=== PATIENT | male | born 1985 | race Caucasian/White ===

== ENCOUNTER 2023-03-25 10:22 | Outpatient (CLI) | payer OTHER ==
--- NOTE | 2023-03-25 15:47 | MRI Report ---
PROCEDURE: SHOULDER WO - RT INDICATIONS: RIGHT SHOULDER PAIN TECHNIQUE: Noncontrast oblique coronal T2 fast spin echo with fat saturation, oblique sagittal T1 spin echo and T2 fast spin echo with fat saturation, axial T1 spin echo and T2 fast spin echo with fat saturation t hrough the shoulder. COMPARISON: None. FINDINGS: Image quality: Excellent. Rotator cuff: Low-grade articular and bursal surface partial-thickness tear involving distal supraspi natus at its insertion on humeral head is seen extending to musculotendinous junction. Distal infrasp inatus and subscapularis tendinosis is seen. No full-thickness rotator cuff tendon rupture. No rotato r cuff muscle atrophy on sagittal images. Bones and bursae: No bone marrow contusions or fractures. Mild acromioclavicular joint osteoarthriti c changes are seen with joint space narrowing and downward osteophyte formation canal supraspinatus. The acromion demonstrates conventional anatomy, without an os acromiale. Small amount of subacromial subdeltoid bursal fluid is noted. Capsule and soft tissues: Fraying of superior anterior labrum with T2 hyperintense signal at 12 to 1: 00 position is seen concerning for superior anterior labral tear. The long head of the biceps tendon demonstrates normal location and morphology. The rotator interval appears normal, without fibrosis. The coracohumeral ligament is normal in thickness. IMPRESSION: 1. Low-grade articular and bursal surface partial-thickness tear involving distal supraspinatus exten ding to musculotendinous junction. Distal infraspinatus and subscapularis tendinosis. No full-thickne ss rotator cuff tendon rupture. 2. Mild acromioclavicular joint osteoarthritis. No fracture or dislocation. Small amount of subacromi al subdeltoid bursal fluid, no gross loose bodies. 3. Suggestion of subtle superior anterior labral tear at 12 to 1:00 position. Reviewed by: Erasto Christina MD on 03/25/2023 3:46 PM PST Approved by: Erasto Christina MD on 03/25/2023 3:46 PM PST Station ID: [id number]
== END 2023-03-25 10:23 | disposition home or self-care (01) ==
LOC: DI 10:22
PROVIDERS: ATTEND Nurse Practitioner Family
DX: M75.111 Incomplete rotator cuff tear or rupture of right shoulder, not specified as traumatic (principal); M19.011 Primary osteoarthritis, right shoulder

== ENCOUNTER 2023-06-04 10:31 | Outpatient (CLI) | payer OTHER ==
--- NOTE | 2023-06-04 19:42 | MRI Report ---
PROCEDURE: Shoulder LT WO INDICATIONS: LEFT SHOULDER PAIN TECHNIQUE: Noncontrast oblique coronal T2 fast spin echo with fat saturation, oblique sagittal T1 spin echo and T2 fast spin echo with fat saturation, axial T1 spin echo and T2 fast spin echo with fat saturation t hrough the shoulder. COMPARISON: None. FINDINGS: Image quality: Mild motion artifact Rotator cuff Bulk: No significant atrophy Teres minor: Intact Supraspinatus: Mild tendinopathy. No significant tear Infraspinatus: Mild tendinopathy. Subscapularis: Intact Bones and bursae GH joint: Minimal osteophytes and joint space narrowing. AC joint: Mild to moderate degenerative changes and capsular edema Humeral head: A focal of T2 signal normality at the lesser tuberosity, likely degenerative ganglions Scapula and acromion: Intact Bursa: No pathologic fluid Capsule Labrum: Not well evaluated on this nonarthrographic study. Mild signal abnormality at superior labrum is seen, extending to the location of the biceps anchor Long head biceps tendon: There is intra-articular tendinopathy, with signal abnormality near the aj oid insertion. IGHL: Intact Rotator interval: Fat signal is preserved Soft tissues: No axillary adenopathy. Lungs are not well seen. IMPRESSION: Possible signal abnormality of the superior labrum may represent a small superior labral tear versus adjacent anatomic recess. This also involves the biceps insertion near the glenoid, which may represe nt tendinopathy and a small split tear. Consider MR arthrogram to further evaluate if necessary. Mild rotator cuff tendinopathy. No full-thickness defect. Minimal glenohumeral and mild to moderate acromioclavicular degenerative changes. Reviewed by: Bienvenido Delacruz MD on 06/04/2023 7:41 PM PST Approved by: Bienvenido Delacruz MD on 06/04/2023 7:41 PM PST Station ID: [id number]
== END 2023-06-04 10:32 | disposition home or self-care (01) ==
LOC: DI 10:31
PROVIDERS: ATTEND Nurse Practitioner Family
DX: M67.814 Other specified disorders of tendon, left shoulder (principal); M19.012 Primary osteoarthritis, left shoulder

== ENCOUNTER 2023-08-12 08:53 | Outpatient (CLI) | payer OTHER ==
[~2023-08-12 08:53] MED LIST: BUPIVACAINE 0.5% PF 10 ML VIAL ONE; LIDOCAINE-MPF 1% 5 ML VIAL ONE; TRIAMCINOLONE 40 MG/ML VIAL ONE
[2023-08-12] MEDS: LIDOCAINE-MPF 1% 5 ML VIAL TD ONE (10:28)
[2023-08-12] MEDS: BUPIVACAINE 0.5% PF 10 ML VIAL IM ONE (10:29)
[2023-08-12] MEDS: TRIAMCINOLONE 40 MG/ML VIAL IM ONE (10:30)
--- NOTE | 2023-08-12 11:38 | Ultrasound Report ---
PROCEDURE: Injection Single Tendon INDICATIONS: L SHOULDER PAIN TECHNIQUE: The indications, alternatives, benefits, risks, and complications of the procedure were explained to the patient. Written informed consent was obtained and placed in the chart. The patient was placed in an appropriate position on the ultrasound table, and a site was chosen for percutaneous access und er ultrasound guidance. Local anesthetic was administered using a 1% lidocaine solution. A hypoderm ic or spinal needle was then used to access the symptomatic site. Appropriate location of the needle tip was confirmed by real time ultrasound imaging, followed by steroid administration. The needle wa s then withdrawn, and a bandage applied to the puncture site. FINDINGS: Site injected: Left biceps long head tendon sheath Medications injected: 1.5 mL of 40 mg/mL Kenalog and 0.5% Ropivacaine mixture. Complications: None. IMPRESSION: Successful ultrasound guided administration of steroid and anaesthetic solution into the left biceps long tendon sheath. Reviewed by: Zhen Storm MD on 08/12/2023 11:36 AM PDT Approved by: Zhen Storm MD on 08/12/2023 11:36 AM PDT Station ID: [id number]
== END 2023-08-12 08:54 | disposition home or self-care (01) ==
LOC: DI 08:53
PROVIDERS: ATTEND Orthopaedic Surgery
DX: M25.512 Pain in left shoulder (principal)
CPT/HCPCS: 20550

== ENCOUNTER 2023-08-16 08:13 | Emergency (ER) | payer OTHER ==
[2023-08-16] MEDS: ONDANSETRON 4 MG/2 ML VIAL IVP STA (08:41)
[2023-08-16 08:44] LABS: BASOPHILS # (AUTO) 0.1 10^3/uL (0.0-0.1); BASOPHILS % (AUTO) 0.7 %; EOSINOPHILS # (AUTO) 0.2 10^3/uL (0.0-0.7); EOSINOPHILS % (AUTO) 1.5 %; HCT - HEMATOCRIT 43.4 % (42.0-52.0); LYMPHOCYTES # (AUTO) 2.3 10^3/uL (1.5-3.5); LYMPHOCYTES % (AUTO) 22.4 %; MEAN CORPUSCULAR HEMOGLOBIN 28.6 pg (27.0-31.0); MEAN CORPUSCULAR HGB CONC 32.3 g/dL (32.0-36.0); MEAN CORPUSCULAR VOLUME 88.8 fL (80.0-94.0); MEAN PLATELET VOLUME 9.3 fL (7.4-11.4); MONOCYTES # (AUTO) 0.7 10^3/uL (0.0-1.0); MONOCYTES % (AUTO) 6.9 %; NEUTROPHILS # (AUTO) 6.9 10^3/uL (1.5-6.6); NEUTROPHILS % (AUTO) 68.2 %; PLT - PLATELET COUNT 291 10^3/uL (130-450); RED BLOOD COUNT 4.89 10^6/uL (4.70-6.10); RED CELL DISTRIBUTION WIDTH 12.5 % (12.0-15.0); WHITE BLOOD COUNT 10.1 x10^3/uL (4.8-10.8)
[2023-08-16] MEDS: HYDROmorphone 1 MG/ML CARPUJECT IVP STA ×2 (08:45→11:11)
[2023-08-16] MEDS: KETOROLAC 30 MG/ML VIAL IVP STA (08:49)
--- NOTE | 2023-08-16 08:59 | ED Physician Documentation ---
PD HPI ABD PAIN - Stated complaint Stated Complaint: LOWER BACK/ABD PX - Chief complaint Chief Complaint: Abd Pain - History obtained from History obtained from: Patient - Additional information Additional information: Patient is a 37-year-old male presenting for evaluation of low back pain that started suddenly this morning. Patient was recently seen on August 04 and diagnosed with a left ureter stone measuring 4 mm. He reports having outpatient follow-up with the [facility] and they did an x-ray which was not able to visualize the stone. He was given a referral to [facility] urology and called on Saturday but did not receive a call back. He is out of pain medication. He reports the pain is severe. It feels worse than his prior episode. Has associated nausea. No fevers. Denies dysuria or hematuria. Review of Systems Constitutional: denies: Fever Cardiac: denies: Chest pain / pressure Respiratory: denies: Dyspnea GI: reports: Abdominal Pain, Nausea. denies: Diarrhea : denies: Dysuria Musculoskeletal: reports: Back pain PD PAST MEDICAL HISTORY - Past Medical History Past Medical History: Yes : Kidney stones Psych: ADD/ADHD - Past Surgical History Past Surgical History: Yes - Present Medications Home Medications: Ambulatory Orders Medication Instructions Recorded Confirmed Dextroamphetamine/Amphetamine 15 mg PO DAILY 08/05/23 08/16/23 [Dextroamp-Amphetamine 5 mg Tab] Dextroamphetamine/Amphetamine 25 mg PO DAILY 08/05/23 08/16/23 [Dextroamp-Amphetamine 5 mg Tab] Ibuprofen 600 mg PO Q6HR PRN #30 tablet 08/05/23 08/16/23 Ondansetron Odt [Zofran] 4 mg TL Q6H PRN #10 tablet 08/16/23 Oxycodone HCl/Acetaminophen 1 each PO Q6H PRN #20 tablet 08/16/23 [Percocet 5-325 mg Tablet] Tamsulosin [Flomax] 0.4 mg PO DAILY #14 cap 08/16/23 - Allergies Allergies/Adverse Reactions: Allergies Allergy/AdvReac Type Severity Reaction Status Date / Time Penicillins Allergy Unknown Verified 08/16/23 08:21 - Social History Does the pt smoke?: No Smoking Status: Never smoker Does the pt drink ETOH?: No Does the pt have substance abuse?: No - Immunizations Immunizations are current?: Yes PD ED PE NORMAL - General General: Alert and oriented X 3, Well developed/nourished, Other (Mildly distressed, in tears) - HEENT HEENT: Atraumatic, Moist mucous membranes, Pharynx benign - Neck Neck: Supple, no meningeal sign - Cardiac Cardiac: RRR, Strong equal pulses - Respiratory Respiratory: No respiratory distress, Clear bilaterally - Abdomen Abdomen: Normal bowel sounds, Soft, Non tender, Non distended - Derm Derm: Warm and dry - Neuro Neuro: Normal speech Results - Vitals Vitals: Vital Signs - 24 hr 08/16/23 08/16/23 08/16/23 08:18 10:21 12:00 Temperature 36.2 C L Heart Rate 88 80 87 Respiratory 18 15 16 Rate Blood Pressure 130/69 145/91 H 152/93 H O2 Saturation 97 99 98 08/16/23 13:46 Temperature 36.5 C Heart Rate 86 Respiratory 16 Rate Blood Pressure 140/88 H O2 Saturation 100 Oxygen O2 Source Room air - Labs Labs: Laboratory Tests 08/16/23 08/16/23 08/16/23 08:38 08:56 09:47 WBC 10.1 RBC 4.89 Hgb 14.0 Hct 43.4 MCV 88.8 MCH 28.6 MCHC 32.3 RDW 12.5 Plt Count 291 MPV 9.3 Neut # (Auto) 6.9 H Lymph # (Auto) 2.3 [place] # (Auto) 0.7 Eos # (Auto) 0.2 Baso # (Auto) 0.1 Absolute Nucleated RBC 0.00 Nucleated RBC % 0.0 Sodium 139 Potassium 3.7 Chloride 105 Carbon Dioxide 28 Anion Gap 6.0 BUN 22 H Creatinine 0.9 Estimated GFR (MDRD) 95 Glucose 98 Calcium 9.9 Total Bilirubin 0.4 AST 14 ALT 22 Alkaline Phosphatase 68 Total Protein 7.4 Albumin 4.8 Globulin 2.6 Albumin/Globulin Ratio 1.8 Urine Color DARK YELLOW Urine Clarity SL. CLOUDY Urine pH 6.0 Ur Specific [place] >=1.030 H Urine Protein 30 H Urine Glucose (UA) NEGATIVE Urine Ketones NEGATIVE Urine Occult Blood LARGE H Urine Nitrite NEGATIVE Urine Bilirubin NEGATIVE Urine Urobilinogen 0.2 (NORMAL) Ur Leukocyte Esterase NEGATIVE Urine RBC TNTC H Urine WBC 0-3 Ur Squamous Epith Cells NONE SEEN Urine Bacteria Few Ur Microscopic Review INDICATED Urine Culture Comments NOT INDICATED PD Medical Decision Making - ED course Complexity details: reviewed results, re-evaluated patient, d/w patient ED course: Patient is a 37-year-old male with left-sided flank pain. Recently diagnosed with a kidney stone last week. Was seen at the [facility] and told that the kidney stone was gone based on an x-ray. He is out of medications and pain of suddenly returned at this morning. CV, chemistry, urinalysis were obtained and reviewed. No signs of infection or sepsis. Patient was given IV fluids, ketorolac, Zofran, Dilaudid with some improvement in pain but did escalate again requiring additional doses of Dilaudid. An x-ray was obtained with no visualization of previously seen the stone.Due to patient requiring significant more amount of pain medication than the prior visit we did opt to repeat CT scan which again demonstrates the left-sided ureter stone which appears slightly more distal. Patient was also given IV lidocaine. He is feeling better and his pain is controlled. Patient given a urine strainer so that he has a better idea if he has passed the stone or not and was encouraged to again have follow-up with urology as well as the [facility]. Patient advised on concerning symptoms to return for. Departure - Departure Disposition: Home, Self Care Clinical Impression: Left ureteral stone Condition: Stable Instructions: ED Stone Renal W Colic Follow-Up: [facility] [Provider Group] Prescriptions: Tamsulosin [Flomax] 0.4 mg PO DAILY #14 cap Oxycodone HCl/Acetaminophen [Percocet 5-325 mg Tablet] 1 each PO Q6H PRN #20 tablet PRN Reason: pain Ondansetron Odt [Zofran] 4 mg TL Q6H PRN #10 tablet PRN Reason: Nausea / Vomiting Comments: Your CT scan still Shows that you have a kidney stone in the left ureter. You do still need close follow-up with urology and I would recommend also continued follow-up at the [facility]. I have sent additional medications to the [facility] pharmacy in [place] for pain, nausea as well as Flomax. We also sent you home with a urine strainer which I would recommend you use so that you may be able to tell if you have passed the stone. Return to the ER with any worsening symptoms. IMPRESSION: 1. Interval slight distal migration of patient's known left sided renal stone now is seen in proximal left ureter causing mild to moderate left-sided hydronephrosis and proximal hydroureter as well as left perinephric fat stranding. No right-sided renal stones or hydronephrosis. 2. No bowel obstruction or abnormal bowel wall thickening. No abscess collection. No free fluid or free air. Forms: PCP List, Activity restrictions Discharge Date/Time: 08/16/23 13:46
[2023-08-16 09:14] LABS: ALBUMIN 4.8 g/dL (3.2-5.5); ALBUMIN/GLOBULIN RATIO 1.8 (1.0-2.2); BILIRUBIN,TOTAL 0.4 mg/dL (0.2-1.0); CALCIUM 9.9 mg/dL (8.5-10.3); CREATININE 0.9 mg/dL (0.6-1.3); POTASSIUM 3.7 mmol/L (3.5-4.5); TOTAL PROTEIN 7.4 g/dL (6.4-8.9)
[2023-08-16 09:53] LABS: BILIRUBIN,URINE NEGATIVE (NEGATIVE); GLUCOSE, URINE (UA) NEGATIVE (NEGATIVE); KETONES,URINE (UA) NEGATIVE (NEGATIVE); LEUKOCYTE ESTERASE, URINE NEGATIVE (NEGATIVE); NITRITE,URINE NEGATIVE (NEGATIVE); OCCULT BLOOD,URINE LARGE (NEGATIVE); PROTEIN,URINE 30 mg/dL (NEGATIVE); UROBILINOGEN,URINE 0.2 (NORMAL) E.U./dL (NORMAL)
[2023-08-16 09:55] LABS: CLARITY,URINE SL. CLOUDY (CLEAR)
[2023-08-16 10:07] LABS: BACTERIA,URINE Few /HPF (None Seen); RBC,URINE TNTC /HPF (0-5); SQUAMOUS EPITHELIAL CELL,UR NONE SEEN (<= Few); WBC,URINE 0-3 /HPF (0-3)
[2023-08-16] MEDS: HYDROmorphone 0.5 MG/0.5 ML SYRINGE IVP STA (10:08)
--- NOTE | 2023-08-16 11:28 | XRAY Report ---
PROCEDURE: Abdomen 1 V INDICATIONS: L sided stone TECHNIQUE: 3 views of the abdomen acquired. COMPARISON: CT abdomen and pelvis without contrast on August 05, 2023. FINDINGS: Surgical changes and devices: None. Bowel: Bowel gas pattern is normal. Soft tissues: No radiographic evidence of nephrolithiasis. Two calcifications within the pelvis are compatible with phleboliths as seen on CT dated August 05, 2023. No suspicious abdominal calcification s. Visualized solid organ contours appear normal in size. Bones: No suspicious bony lesions. IMPRESSION: No radiographic evidence of nephrolithiasis. Two calcifications within the pelvis are compatible with phleboliths as seen on CT dated August 05, 2023. A repeat CT KUB can be performed for further evaluation, at clinical discretion. Reviewed by: Nathanael García MD on 08/16/2023 11:27 AM PDT Approved by: Nathanael García MD on 08/16/2023 11:27 AM PDT Station ID: [id number]
--- NOTE | 2023-08-16 12:37 | CT Report ---
PROCEDURE: Abdomen/Pelvis WO INDICATIONS: flank pain TECHNIQUE: A CT scan of the abdomen and pelvis was performed without the use of intravenous contrast. Images we re recorded and evaluated at appropriate window settings. Reformats: coronal and sagittal. For radiat ion dose reduction, the following was used: automated exposure control, adjustment of mA and/or kV ac cording to patient size. COMPARISON: 08/05/2023. FINDINGS: Image quality: Diagnostic. Lower chest: Unremarkable. Liver: No contour-deforming mass. Hepatomegaly is noted. Moderate hepatic steatosis is seen. Gallbladder and biliary tree: No radiopaque stones or wall thickening. No biliary dilation. Spleen: No splenomegaly. Pancreas: No pancreatic ductal dilation. Adrenals: No adrenal nodule. Kidneys and ureters: Mild to moderate left-sided hydronephrosis and left perinephric fat stranding is seen. 5 mm stone is noted in left proximal ureter series 4 image 75 and series 2 image 71. This ston e measures 767 [place] in density. Compared to previous study, the stone is slightly more inferior in position. No right-sided renal stone or hydronephrosis. Stomach, bowel and peritoneum: There is no bowel obstruction or abnormal bowel wall thickening. No me senteric fat stranding. No abscess collection. No free fluid or free air. Lymph nodes: No central or retroperitoneal adenopathy. Vessels: No infrarenal aortic aneurysm. PELVIS Reproductive organs: Unremarkable. Bladder: No wall thickness, accounting for underdistention. Pelvic lymph nodes: No pelvic adenopathy by size criteria. Bones: No aggressive osseous abnormality. Other: No significant ventral or inguinal hernia. IMPRESSION: 1. Interval slight distal migration of patient's known left sided renal stone now is seen in proximal left ureter causing mild to moderate left-sided hydronephrosis and proximal hydroureter as well as l eft perinephric fat stranding. No right-sided renal stones or hydronephrosis. 2. No bowel obstruction or abnormal bowel wall thickening. No abscess collection. No free fluid or fr ee air. Reviewed by: Erasto Christina MD on 08/16/2023 12:36 PM PDT Approved by: Erasto Christina MD on 08/16/2023 12:36 PM PDT Station ID: [id number]
[2023-08-16] MEDS: LIDOCAINE-MPF 2% 7.5 ML in SODIUM CHLORIDE 0.9% 50 ML IV STA (12:48)
[2023-08-16] MEDS: oxyCODONE 5 MG TABLET PO STA (13:42)
[2023-08-16 13:52] VITALS: BP 140/88; O2SAT 100
== END 2023-08-16 13:46 | disposition home or self-care (01) ==
LOC: ED 08:13
DX: N20.1 Calculus of ureter (principal); Z87.442 Personal history of urinary calculi
CPT/HCPCS: 36415; 74018; 74176; 80053; 81001; 85025; 96374; 96375; 96376; 99284; 99285; A9270; J1170; J7040; 81003; 87086

== ENCOUNTER 2023-09-10 06:07 | Emergency (ER) | payer OTHER ==
[2023-09-10 07:55] LABS: BASOPHILS # (AUTO) 0.1 10^3/uL (0.0-0.1); BASOPHILS % (AUTO) 0.5 %; EOSINOPHILS # (AUTO) 0.2 10^3/uL (0.0-0.7); EOSINOPHILS % (AUTO) 1.6 %; HCT - HEMATOCRIT 42.6 % (42.0-52.0); LYMPHOCYTES # (AUTO) 2.6 10^3/uL (1.5-3.5); LYMPHOCYTES % (AUTO) 23.1 %; MEAN CORPUSCULAR HEMOGLOBIN 28.6 pg (27.0-31.0); MEAN CORPUSCULAR HGB CONC 32.9 g/dL (32.0-36.0); MEAN CORPUSCULAR VOLUME 86.9 fL (80.0-94.0); MONOCYTES # (AUTO) 0.7 10^3/uL (0.0-1.0); MONOCYTES % (AUTO) 6.5 %; NEUTROPHILS # (AUTO) 7.6 10^3/uL (1.5-6.6); PLT - PLATELET COUNT 289 10^3/uL (130-450); RED CELL DISTRIBUTION WIDTH 12.2 % (12.0-15.0); WHITE BLOOD COUNT 11.1 x10^3/uL (4.8-10.8)
[2023-09-10 08:09] LABS: ALBUMIN 4.7 g/dL (3.2-5.5); ALBUMIN/GLOBULIN RATIO 2.2 (1.0-2.2); BILIRUBIN,TOTAL 0.4 mg/dL (0.2-1.0); CALCIUM 9.8 mg/dL (8.5-10.3); POTASSIUM 4.2 mmol/L (3.5-4.5); TOTAL PROTEIN 6.8 g/dL (6.4-8.9)
--- NOTE | 2023-09-10 09:36 | ED Physician Documentation ---
PD HPI ABD PAIN - Stated complaint Stated Complaint: LOW ABD PX - Chief complaint Chief Complaint: General - History obtained from History obtained from: Patient - History of Present Illness Timing - details: Still present Quality: Cramping, Aching, Pain Location: RLQ, Suprapubic (he feels the pain is across the lower abd and to both flanks.Has had left sided pain for about amonth, due to ureteral stone 5 mm that had not been passing. He had not had stone on the right.), LLQ Radiation: Left flank, Right flank Improved by: Laying still. No: Eating Worsened by: Moving. No: Eating, Breathing, Palpation Associated symptoms: Nausea, Vomiting, Hematuria. No: Fever, Diarrhea, Constipation PD PAST MEDICAL HISTORY - Past Medical History Past Medical History: Yes : Kidney stones Psych: ADD/ADHD - Past Surgical History Past Surgical History: Yes - Present Medications Home Medications: Ambulatory Orders Medication Instructions Recorded Confirmed Dextroamphetamine/Amphetamine 15 mg PO DAILY 08/05/23 09/10/23 [Dextroamp-Amphetamine 5 mg Tab] Dextroamphetamine/Amphetamine 25 mg PO DAILY 08/05/23 09/10/23 [Dextroamp-Amphetamine 5 mg Tab] Ibuprofen 600 mg PO Q6HR PRN #30 tablet 08/05/23 09/10/23 Ondansetron Odt [Zofran] 4 mg TL Q6H PRN #10 tablet 08/16/23 09/10/23 Oxycodone HCl/Acetaminophen 1 each PO Q6H PRN #20 tablet 08/16/23 09/10/23 [Percocet 5-325 mg Tablet] Tamsulosin [Flomax] 0.4 mg PO DAILY #14 cap 08/16/23 09/10/23 Ondansetron Odt [Zofran] 4 mg TL Q6H PRN #15 tablet 09/10/23 Oxycodone HCl/Acetaminophen 1 each PO Q6H PRN #20 tablet 09/10/23 [Percocet 7.5-325 mg Tablet] - Allergies Allergies/Adverse Reactions: Allergies Allergy/AdvReac Type Severity Reaction Status Date / Time Penicillins Allergy Unknown Verified 09/10/23 09:52 - Social History Does the pt smoke?: No Smoking Status: Never smoker Does the pt drink ETOH?: No Does the pt have substance abuse?: No - Immunizations Immunizations are current?: Yes Results - Vitals Vitals: Vital Signs - 24 hr 09/10/23 09/10/23 09/10/23 06:15 10:00 12:00 Temperature 36.4 C L Heart Rate 83 79 76 Respiratory 18 16 20 Rate Blood Pressure 137/78 H 127/78 132/82 H O2 Saturation 95 98 98 09/10/23 13:00 Temperature Heart Rate 70 Respiratory 18 Rate Blood Pressure 128/80 O2 Saturation 98 Oxygen O2 Source Room air - Labs Labs: Laboratory Tests 09/10/23 09/10/23 09/10/23 07:00 07:52 07:52 WBC 11.1 H RBC 4.90 Hgb 14.0 Hct 42.6 MCV 86.9 MCH 28.6 MCHC 32.9 RDW 12.2 Plt Count 289 MPV 9.0 Neut # (Auto) 7.6 H Lymph # (Auto) 2.6 [place] # (Auto) 0.7 Eos # (Auto) 0.2 Baso # (Auto) 0.1 Absolute Nucleated RBC 0.00 Nucleated RBC % 0.0 Sodium 137 Potassium 4.2 Chloride 104 Carbon Dioxide 26 Anion Gap 7.0 BUN 22 H Creatinine 1.0 Estimated GFR (MDRD) 85 L Glucose 104 Calcium 9.8 Total Bilirubin 0.4 AST 14 ALT 23 Alkaline Phosphatase 58 Total Protein 6.8 Albumin 4.7 Globulin 2.1 Albumin/Globulin Ratio 2.2 Lipase 74 Urine Color DARK YELLOW Urine Clarity CLOUDY Urine pH 6.0 Ur Specific [place] 1.025 Urine Protein 30 H Urine Glucose (UA) NEGATIVE Urine Ketones NEGATIVE Urine Occult Blood LARGE H Urine Nitrite NEGATIVE Urine Bilirubin NEGATIVE Urine Urobilinogen 0.2 (NORMAL) Ur Leukocyte Esterase NEGATIVE Urine RBC TNTC H Urine WBC 0-3 Ur Squamous Epith Cells NONE SEEN Urine Bacteria None Seen Urine Mucus Few Strands Ur Microscopic Review INDICATED Urine Culture Comments NOT INDICATED - Rads (name of study) abd CT Relevant Findings:: Prelim report reviewed (normal appendix, no right stones. Left ureteral stone lower than on prior imaging. Not passed.), EMP independent interpretation of test PD Medical Decision Making - ED course Complexity details: reviewed results (CT done and shows just left stone lower than it had been. Presume right pain is concurent right ureteral spasm causing some right backpressure. Not sure. No UTI. ), re-evaluated patient (Pt given IV fluids and meds of toradol, zofran, dilaudid x 2, and lido for stones. Pain improved enough to be comfortable for discharge. Has scheduled stone retrieval/stent in 2 days already. ), considered differential (he has known kidney stone on left, but now with marked pain both right and left and to right flank. Had not had stones on right, so also consider appy, divertic, UTI, other process. Can get CT. ), d/w patient Departure - Departure Disposition: 01 Home, Self Care Clinical Impression: Bilateral lower abdominal pain, Right flank pain, Ureterolithiasis Condition: Stable Instructions: ED Stone Renal W Colic Prescriptions: Oxycodone HCl/Acetaminophen [Percocet 7.5-325 mg Tablet] 1 each PO Q6H PRN #20 tablet PRN Reason: Pain 5-7 Ondansetron Odt [Zofran] 4 mg TL Q6H PRN #15 tablet PRN Reason: Nausea / Vomiting Comments: Your CT scan showed still the stone on the left lower than it had been. It looks like it moved and that accounts for some of the bleeding and increased pain. No stones are seen on the right and you have a normal appearing kidney, appendix, intestines. No signs of abnormality to the right. I presume it some reference of pain from the stone on the left probably causing commensurate spasming of the ureter on the right as well. Continue with your tamsulosin. Stay well-hydrated. Since you are having your stone procedure in 2 days, continue with no aspirin or NSAIDs as previously directed by your urologist. Use Tylenol/acetaminophen 500 to 650 mg 4 times daily regularly. Zofran/ondansetron if needed for nausea. Add Percocet 7.5 mg every 4-6 hours if needed for pain. Combine that with a stool softener so you do not get constipated. Return if needed. Otherwise have your urology stent/stone retrieval in 2 days as planned. I sent your prescriptions to your preferred pharmacy. I am prescribing a short course of narcotic pain medication for you. These are potentially dangerous and addictive medications that should be used carefully. These medications may constipate you. Take an [id number] stool softener such as docusate twice daily with plenty of water while taking these medications. If you go 24 hours without a bowel movement, take [id number] MiraLAX, per package instructions. Do not drink or drive while taking these medications. If you received narcotic or sedating medications while in the emergency department do not drive for 24 hours. Store this medication in a safe, secure place and out of reach of children. It is a violation of federal law to give or sell this medication to another person or to use in a manner other than prescribed. The ED will not refill narcotic prescriptions, including prescriptions lost or stolen. You can dispose of unwanted medications at the [facility]'s office or at several pharmacies such as [facility]. Forms: PCP List Discharge Date/Time: 09/10/23 13:03
[2023-09-10 09:51] LABS: BILIRUBIN,URINE NEGATIVE (NEGATIVE); GLUCOSE, URINE (UA) NEGATIVE (NEGATIVE); KETONES,URINE (UA) NEGATIVE (NEGATIVE); LEUKOCYTE ESTERASE, URINE NEGATIVE (NEGATIVE); NITRITE,URINE NEGATIVE (NEGATIVE); OCCULT BLOOD,URINE LARGE (NEGATIVE); PROTEIN,URINE 30 mg/dL (NEGATIVE); UROBILINOGEN,URINE 0.2 (NORMAL) E.U./dL (NORMAL)
[2023-09-10 09:53] LABS: CLARITY,URINE CLOUDY (CLEAR)
[2023-09-10] MEDS: KETOROLAC 15 MG/ML VIAL IVP STA (10:04)
[2023-09-10] MEDS: HYDROmorphone 1 MG/ML CARPUJECT IVP STA ×3 (10:05→13:07)
[2023-09-10] MEDS: ONDANSETRON 4 MG/2 ML VIAL IVP STA (10:05)
[2023-09-10 10:06] LABS: BACTERIA,URINE None Seen /HPF (None Seen); MUCUS,URINE Few Strands; RBC,URINE TNTC /HPF (0-5); SQUAMOUS EPITHELIAL CELL,UR NONE SEEN (<= Few); WBC,URINE 0-3 /HPF (0-3)
[2023-09-10] MEDS: SODIUM CHLORIDE 0.9% 1,000 ML IV STA (10:06)
[2023-09-10] MEDS ORDERED: iohexoL-300 100 ML VIAL ONE (10:23)
[2023-09-10 10:48] VITALS: O2SAT 98
[2023-09-10] MEDS: LIDOCAINE-MPF 2% 8 ML in SODIUM CHLORIDE 0.9% 50 ML IV STA (11:55)
--- NOTE | 2023-09-10 12:19 | CT Report ---
PROCEDURE: Abdomen/Pelvis W INDICATIONS: right flank/abd pain since last night CONTRAST: Omni 300 100ml TECHNIQUE: After the administration of intravenous contrast, a CT scan of the abdomen and pelvis was performed. Images were recorded and evaluated at appropriate window settings. Reformats: coronal and sagittal. F or radiation dose reduction, the following was used: automated exposure control, adjustment of mA and /or kV according to patient size. COMPARISON: 08/16/2023. FINDINGS: Image quality: Diagnostic. Lower chest: Unremarkable. Liver: Hepatic steatosis. Gallbladder: No radiopaque stones or wall thickening. Biliary tree: No intrahepatic or extrahepatic dilation, accounting for age. Spleen: No splenomegaly. Pancreas: No pancreatic ductal dilation. Adrenals: No adrenal nodule. Kidneys and ureters: Persistent 5 mm stone in the distal left ureter, progressed from prior. Persiste nt hydronephrosis, hydroureter and delayed nephrogram. Stomach, bowel and peritoneum: No gastric or small bowel dilation. No abnormal wall thickening. No pa thologic free fluid. Normal appendix. Colonic diverticulosis without evidence of diverticulitis. Lymph nodes: No central or retroperitoneal adenopathy. Vessels: No infrarenal aortic aneurysm. Patent portal vein. PELVIS Reproductive organs: Unremarkable. Bladder: No abnormal wall thickening, accounting for underdistention. Pelvic lymph nodes: No pelvic adenopathy by size criteria. Bones: No aggressive osseous abnormality. Other: No significant ventral or inguinal hernia. IMPRESSION: Progressed 5 mm stone in the distal left ureter, with persistent moderate hydronephrosis, hydroureter and delayed nephrogram. Findings to explain the patient's right flank pain. Normal appendix and no right-sided nephrolithiasi s. Reviewed by: Jerry Garcia MD on 09/10/2023 12:18 PM PDT Approved by: Jerry Garcia MD on 09/10/2023 12:18 PM PDT Station ID: [id number]
[2023-09-10] MEDS: iohexoL-300 100 ML VIAL IVP ONE (14:50)
[2023-09-10 17:58] VITALS: BP 128/80
== END 2023-09-10 13:03 | disposition home or self-care (01) ==
LOC: ED 06:07
DX: N13.2 Hydronephrosis with renal and ureteral calculous obstruction (principal); N13.4 Hydroureter
CPT/HCPCS: 36415; 74177; 80053; 81001; 83690; 85025; 96365; 96375; 99284; 99285; J1170; J7040; Q9967; 81003; 87086